=== PATIENT | female | born 1955 | race Caucasian/White ===

== ENCOUNTER 2023-10-19 09:10 | Emergency (ER) | payer MEDICARE, MEDICAID ==
[~2023-10-19] VITALS: Ht 157.5 cm; Wt 81.6 kg
[~2023-10-19 09:10] MED LIST: CLON-527 PO; DILT120C52 PO; DOCU-28 PO; FURO40TA4 PO; LISI10TA27 PO; ONDA-243 PO; OXYC-134 PO; POTA10TA15 PO; RANI300T4 PO; THY60T PO; TIZA-189 PO; TRAZ150T78 PO; VENL225T3 PO
[2023-10-19 09:17] VITALS: TEMP 98.2
[2023-10-19 09:58] LABS: BASOPHILS % (AUTO) 0.6 % (0-1); EOSINOPHILS # (AUTO) 0.1 X10'3 (0-0.9); EOSINOPHILS % (AUTO) 1.3 % (0-6); HEMATOCRIT 39.8 % (35.0-45.0); HEMOGLOBIN 13.4 g/dl (12.0-16.0); LYMPHOCYTES # (AUTO) 1.9 X10'3 (1.1-4.8); LYMPHOCYTES % (AUTO) 25.2 % (21-51); MEAN CORPUSCULAR HEMOGLOBIN 31.5 PG (27.0-31.0); MEAN CORPUSCULAR HGB CONC 33.7 g/dL (33.0-36.5); MEAN CORPUSCULAR VOLUME 93.4 FL (78-98); MEAN PLATELET VOLUME 8.4 FL (7.4-10.4); MONOCYTES # (AUTO) 0.6 X10'3 (0-0.9); MONOCYTES % (AUTO) 7.4 % (2-12); NEUTROPHILS % (AUTO) 65.5 % (42-75); PLATELET COUNT 226 X10'3 (140-440); RED BLOOD COUNT 4.26 X10'6 (4.20-5.60); RED CELL DISTRIBUTION WIDTH 13.3 % (11.5-14.5); WHITE BLOOD COUNT 7.7 X10'3 (4.5-11.0)
[2023-10-19 10:10] LABS: BILIRUBIN,URINE NEGATIVE (Neg); CLARITY,URINE SLIGHTLY CLOUDY (Clear); COLOR,URINE YELLOW (Yellow); GLUCOSE, URINE NEGATIVE (Neg); KETONES,URINE NEGATIVE (Neg); LEUKOCYTE ESTERASE ,URINE SMALL (Neg); NITRITES, URINE NEGATIVE (Neg); OCCULT BLOOD,URINE MODERATE (Neg); PROTEIN,URINE NEGATIVE (Neg); UROBILINOGEN,URINE 0.2 E.U/dL (0.2-1.0)
[2023-10-19 10:11] LABS: URINE HCG NEGATIVE (NEG)
[2023-10-19 10:13] LABS: UA COLLECTION TYPE CLN CATCH MIDSTREAM
[2023-10-19 10:17] LABS: ALANINE AMINOTRANSFERASE 24 U/L (12-78); ALBUMIN 3.4 G/DL (3.4-5.0); ALBUMIN/GLOBULIN RATIO 0.9 (1.1-1.5); ALKALINE PHOSPHATASE 99 IU/L (46-116); ANION GAP 7 (8-16); ASPARTATE AMINO TRANSFERASE 19 U/L (10-37); BILIRUBIN,TOTAL 0.6 MG/DL (0.1-1.0); BLOOD UREA NITROGEN 11 MG/DL (7-18); BUN/CREATININE RATIO 9.9 (10.0-20.0); CALCIUM 8.8 MG/DL (8.5-10.1); CHLORIDE 103 MMOL/L (99-107); CREATININE 1.11 MG/DL (0.40-0.90); GLUCOSE 95 MG/DL (70-104); LIPASE 45 U/L (16-77); POTASSIUM 3.4 MMOL/L (3.5-5.1); SODIUM 139 MMOL/L (135-145); TOTAL CARBON DIOXIDE 28.7 MMOL/L (24-32); TOTAL PROTEIN 7.2 G/DL (6.4-8.2); eCRCL 40 ML/MIN; eGFR 49 ML/MIN
[2023-10-19 10:18] LABS: BACTERIA,URINE FEW /HPF (Neg); RBC,URINE 50-100 /HPF (0-2); SQUAMOUS EPITHELIAL CELL,UR FEW /LPF (FEW)
[2023-10-19] MEDS ORDERED: CEPH-585 PO (10:56)
[2023-10-19] MEDS: cephalexin 250mg capsule PO ONE (11:07)
[2023-10-19 11:11] VITALS: BP 136/72; PULSE 68; RESP 16; O2SAT 98
== END 2023-10-19 11:14 | disposition home or self-care (01) ==
LOC: ER 09:11
DX: N10 Acute pyelonephritis (principal); N39.0 Urinary tract infection, site not specified; I11.0 Hypertensive heart disease with heart failure; I50.9 Heart failure, unspecified; J45.909 Unspecified asthma, uncomplicated; K21.9 Gastro-esophageal reflux disease without esophagitis; Z88.0 Allergy status to penicillin; Z88.2 Allergy status to sulfonamides; Z88.5 Allergy status to narcotic agent; Z91.048 Other nonmedicinal substance allergy status
CPT/HCPCS: 36415; 80053; 81001; 81025; 83690; 85025; 87088; 99284

== ENCOUNTER 2023-12-27 21:15 | Emergency (ER) | payer MEDICARE, MEDICAID ==
[~2023-12-27] VITALS: Ht 157.5 cm; Wt 77.3 kg
[~2023-12-27 21:15] MED LIST changes: +CEPH-585 PO
[2023-12-27 21:32] LABS: BASOPHILS # (AUTO) 0.1 X10'3 (0-0.2); BASOPHILS % (AUTO) 0.6 % (0-1); EOSINOPHILS # (AUTO) 0.1 X10'3 (0-0.9); EOSINOPHILS % (AUTO) 1.2 % (0-6); HEMATOCRIT 42.2 % (35.0-45.0); LYMPHOCYTES # (AUTO) 2.8 X10'3 (1.1-4.8); LYMPHOCYTES % (AUTO) 29.8 % (21-51); MEAN CORPUSCULAR HGB CONC 33.1 g/dL (33.0-36.5); MEAN CORPUSCULAR VOLUME 93.7 FL (78-98); MEAN PLATELET VOLUME 8.5 FL (7.4-10.4); MONOCYTES # (AUTO) 0.7 X10'3 (0-0.9); MONOCYTES % (AUTO) 7.5 % (2-12); NEUTROPHILS # (AUTO) 5.6 X10'3 (1.8-7.7); NEUTROPHILS % (AUTO) 60.9 % (42-75); PLATELET COUNT 248 X10'3 (140-440); RED BLOOD COUNT 4.51 X10'6 (4.20-5.60); RED CELL DISTRIBUTION WIDTH 13.3 % (11.5-14.5); WHITE BLOOD COUNT 9.3 X10'3 (4.5-11.0)
[2023-12-27 21:48] LABS: ALANINE AMINOTRANSFERASE 23 U/L (12-78); ALBUMIN 3.7 G/DL (3.4-5.0); ALKALINE PHOSPHATASE 89 IU/L (46-116); ANION GAP 9 (8-16); ASPARTATE AMINO TRANSFERASE 18 U/L (10-37); BILIRUBIN,TOTAL 0.3 MG/DL (0.1-1.0); BLOOD UREA NITROGEN 15 MG/DL (7-18); BUN/CREATININE RATIO 14.6 (10.0-20.0); CALCIUM 9.1 MG/DL (8.5-10.1); CHLORIDE 103 MMOL/L (99-107); CREATININE 1.03 MG/DL (0.40-0.90); GLUCOSE 97 MG/DL (70-104); POTASSIUM 3.3 MMOL/L (3.5-5.1); SODIUM 140 MMOL/L (135-145); TOTAL CARBON DIOXIDE 28.4 MMOL/L (24-32); TOTAL PROTEIN 7.5 G/DL (6.4-8.2); eCRCL 42 ML/MIN; eGFR 54 ML/MIN
[2023-12-27 21:56] LABS: PRO BRAIN NATRIURETIC PEPTIDE 158 PG/ML (0-125)
[2023-12-27] MEDS: fentaNYL/PF 50MCG/1 ML 2ML syringe IV ONE (23:10)
[2023-12-27] MEDS: aspirin 81mg tab.chew PO ONE (23:10)
[2023-12-27] MEDS: normal saline 1000ml 1,000 ML IV ONE (23:12)
[2023-12-27] MEDS: normal saline 1000ML IV soln IVB ONE (23:12)
[2023-12-28] MEDS: LORazepam 2 mg/ml vial IV ONE (00:15)
[2023-12-28] MEDS ORDERED: iohexol 350MG/ML 100ml bottle IV ONE (00:21)
[2023-12-28] MEDS: morphine 4 MG/ML inj SYRINge IV ONE ×3 (00:23→02:15)
[2023-12-28] MEDS: cyclobenzaprine 10mg tablet PO ONE ×2 (00:23→01:31)
[2023-12-28] MEDS ORDERED: CYCL-1 PO (02:06)
[2023-12-28] MEDS: mag hydrox/Alum hydrox/simeth 30ml oral suspension PO ONE (02:14)
[2023-12-28] MEDS: LIDOcaine 2% Viscous 15ml cup MM ONE (02:14)
[2023-12-28 02:17] VITALS: BP 159/105; PULSE 65; RESP 16; TEMP 98.3; O2SAT 98
== END 2023-12-28 02:25 | disposition home or self-care (01) ==
LOC: ER 21:16
DX: R07.89 Other chest pain (principal); I11.0 Hypertensive heart disease with heart failure; I50.9 Heart failure, unspecified; J45.909 Unspecified asthma, uncomplicated; K21.9 Gastro-esophageal reflux disease without esophagitis; F41.9 Anxiety disorder, unspecified; F32.A Depression, unspecified; Z88.2 Allergy status to sulfonamides; Z88.0 Allergy status to penicillin; Z88.5 Allergy status to narcotic agent; Z88.8 Allergy status to other drugs, medicaments and biological substances; Z79.899 Other long term (current) drug therapy; Z79.2 Long term (current) use of antibiotics; Z98.890 Other specified postprocedural states
CPT/HCPCS: 36415; 71045; 71275; 74174; 80053; 83880; 84484; 85025; 93005; 96361; 96374; 96375; 96376; 99285; J2270; J3010; J7030; Q9967

== ENCOUNTER 2024-02-29 07:06 | Outpatient (CLI) | payer MEDICARE, MEDICAID ==
[~2024-02-29 07:06] MED LIST changes: +CYCL-1 PO
== END 2024-02-29 23:59 | disposition home or self-care (01) ==
LOC: MRI02 07:06
PROVIDERS: ATTEND Nurse Practitioner Adult Health
DX: M47.26 Other spondylosis with radiculopathy, lumbar region (principal); M70.61 Trochanteric bursitis, right hip; M25.551 Pain in right hip; M47.817 Spondylosis without myelopathy or radiculopathy, lumbosacral region; M51.379 Other intervertebral disc degeneration, lumbosacral region without mention of lumbar back pain or lower extremity pain; M48.07 Spinal stenosis, lumbosacral region; M51.16 Intervertebral disc disorders with radiculopathy, lumbar region
CPT/HCPCS: 72148